=== PATIENT | male | born 1990 | race Caucasian/White ===

== ENCOUNTER 2021-01-14 17:40 | Emergency (ER) | payer MEDICAID, SELFPAY ==
--- NOTE | ~2021-01-14 | CT_ITS ---
EXAMINATION: CT HEAD WITHOUT CONTRAST CLINICAL INFORMATION: Status post fall. COMPARISON: None TECHNIQUE: Contiguous axial imaging was performed from the skull base to vertex without intravenous administration of contrast. This CT examination was performed using dose optimization techniques as appropriate, variously including the following: *Automated exposure control *Adjustment of mA and/or kV according to patient size (this includes techniques or standardized protocols for targeted exams where dose is matched to indication/reason for exam; i.e. extremities or head) *Use of iterative reconstruction technique DLP: 679 mGy-cm FINDINGS: There is no evidence of acute intracranial hemorrhage or territorial infarction. No abnormal mass effect or midline shift is seen. [place] to white matter differentiation is well preserved. No extra-axial fluid collections are identified. The ventricles are normal in size. There is no abnormal attenuation within the brain parenchyma. The osseous structures and soft tissues are normal. The mastoid air cells and visualized portions of the paranasal sinuses are well aerated. CT/CT head/brain wo con IMPRESSION: No CT evidence of acute intracranial pathology.
[2021-01-14 17:47] VITALS: BP 119/77; BP 132/73; PULSE 128; RESP 16; TEMP 36.8; O2SAT 93; BMI 24.2
--- NOTE | 2021-01-14 17:57 | PC.NURSE ---
Pt sweatpants placed in decon.
[2021-01-14 18:00] VITALS: BP 132/73; PULSE 120; RESP 16; TEMP 36.8; O2SAT 93
--- NOTE | 2021-01-14 18:00 | ED.OVERDOSE ---
HPI - Overdose General Chief Complaint: Overdose Stated Complaint: overdose Time Seen by Provider: 01/14/21 18:00 Source: patient and EMS Mode of arrival: EMS Limitations: no limitations History of Present Illness HPI Narrative: pt with History of substance abuse used 5 bags of heroin earlier today was in the bathroom hit his sink was on the floor not responding was given 4 mg of Narcan IN. Patient with history alcohol abuse chronic pancreatitis marijuana use recent marijuana vaping with E cigarettes Vaping acute lung injury (EVALI) and possible hepatopulmonary syndrome was in [facility] from 12/26 till 01/13, today patient used heroin and became unresponsive treated with Merissa HULL complaint: accidental overdose Related Data Previous Rx's Medication Instructions Recorded lactulose 20 g PO BID #1200 ml 01/14/21 Allergies Allergy/AdvReac Type Severity Reaction Status Date / Time No Known Allergies Allergy Verified 01/14/21 17:45 Review of Systems Review of Systems: Constitutional : No Weight loss, No Fever, No Chills ENT/Mouth : No sore throat, No Rhinorrhea Eyes: No Eye Pain, No Swelling Cardiovascular : No Chest Pain, no palpitations Respiratory : No Cough, No Sputum, no shortness of breath Gastrointestinal : no Nausea, No Vomiting, No Diarrhea, No abdominal Pain, no black stools Genitourinary : No Dysuria, No Urinary Frequency Musculoskeletal : No joint pain, No Myalgias, No Joint Swelling leg swelling++ Skin : No Skin Lesions, No rash, jaundice++ Neuro : No Weakness, No Numbness, No Dizziness, No Headache Psych : No Anxiety/Panic, No Depression Heme/Lymph: No Bruising, No Lymphadenopathy Endocrine : No Polyuria, No Polydipsia All other systems reviewed and are negative [facility] Past Medical History Medical History Alcohol abuse CHF (congestive heart failure) Chronic pancreatitis E-cigarette or vaping product use associated lung injury (EVALI) Hepatopulmonary syndrome Social History Social History Alcohol intake: never Smoking Status: Never smoker Use of substances other than those prescribed or required for medical reasons: Yes Substance Use Type: Heroin Advance Directives: No Advance Directives Information Provided: No Physical Exam Vital Signs: Vital Signs: Last Vital Signs Temp 98.3 F 01/14/21 19:00 Pulse 111 H 01/14/21 19:00 Resp 17 01/14/21 19:00 BP 132/73 01/14/21 18:00 Pulse Ox 93 01/14/21 19:00 Oxygen Flow Rate 3 01/14/21 17:47 Body Mass Index 24.2 Appearance: Alert. Oriented X3. No acute distress. Eyes: PERRLA, No Nystagmus HEENT: Pharynx normal. Oral Mucosa moist, small bruise above left eye, deeply icterus Neck: Normal inspection. Neck supple. CVS: Normal heart rate and rhythm. Pulses normal. Respiratory: No respiratory distress. Equal air entry bilateral, no wheezing/rales/rhonchi Abdomen: Soft and nontender. Bowel sounds are present, no mass palpable, no CVA tenderness Skin: Skin warm and dry. Normal skin color. Normal skin turgor. Yellow discoloration Extremities: No lower extremity edema. No calf tenderness Neuro: Oriented X 3. No motor deficit. No sensory deficit.No cerebellar signs , cranial nerves II-XII intact MDM - Overdose Medical Records Attestation: I reviewed the patient's medical records. Lab Data Attestation: I reviewed the patient's lab results. Result diagrams: 01/14/21 18:11 01/14/21 18:11 Labs: Lab Results 01/14/21 01/14/21 01/14/21 Range/Units 18:11 18:11 18:11 WBC 19.0 H (4.8-10.8) X10*3/uL RBC 2.26 L (4.60-5.80) X10*6/uL Hgb 7.7 L (14.0-18.0) g/dl Hct 23.4 L (42-52) % MCV 103.5 H (80-98) fL MCH 34.1 H (27.0-33.0) pg MCHC 32.9 (31.0-36.0) g/dl RDW 17.3 H (11.0-16.0) % Plt Count 190 (160-400) X10*3/uL MPV 10.2 (9.4-12.4) fL Immature Gran % (Auto) 1.6 H (0.0-0.4) % Neut % (Auto) 86.1 H (45-73) % Lymph % (Auto) 7.6 L (20-40) % [place] % (Auto) 3.7 (2-11) % Eos % (Auto) 0.9 (0-4) % Baso % (Auto) 0.1 (0-2) % Lymph # (Auto) 1.5 (1.2-4.9) X10*3/uL [place] # (Auto) 0.7 (0.1-1.2) X10*3/uL Eos # (Auto) 0.2 (0.0-0.4) X10*3/uL Baso # (Auto) 0.0 (0.0-0.2) X10*3/uL Abs Immat Gran (auto) 0.31 H (0.00-0.03) X10*3/uL Absolute Neuts (auto) 16.4 H (2.0-8.3) X10*3/uL Absolute Nucleated RBC 0.000 (0.0-0.012) X10*3/uL Nucleated RBC % (auto) 0.0 (0.0-0.2) /100WBC PT 20.7 H (10.8-13.0) SEC INR 1.7 H (0.9-1.1) APTT 32.6 (24.1-38.0) SEC Sodium 142 (135-145) mmol/L Potassium 3.8 (3.3-5.1) mmol/L Chloride 111 H (96-108) mmol/L Carbon Dioxide 16 L (22-29) mmol/L Anion Gap 19 (12-20) BUN 18 H (9-16) mg/dL Creatinine 0.77 (0.5-1.4) mg/dL Estim Creat Clear Calc 125.4 Estimated GFR > 60 Random Glucose 180 H (60-115) mg/dL Calcium 8.4 (8.4-10.2) mg/dL Total Bilirubin 10.4 H (0.0-1.0) mg/dL Direct Bilirubin 7.8 H (0.0-0.5) mg/dL AST 292 H (5-37) U/L ALT 319 H (0-40) U/L Alkaline Phosphatase 209 H (39-117) U/L Ammonia (13-55) umol/L Total Protein 4.9 L (6.5-8.0) g/dL Albumin 2.9 L (3.5-5.0) g/dL Lipase (8-78) U/L 01/14/21 01/14/21 Range/Units 18:11 18:11 WBC (4.8-10.8) X10*3/uL RBC (4.60-5.80) X10*6/uL Hgb (14.0-18.0) g/dl Hct (42-52) % MCV (80-98) fL MCH (27.0-33.0) pg MCHC (31.0-36.0) g/dl RDW (11.0-16.0) % Plt Count (160-400) X10*3/uL MPV (9.4-12.4) fL Immature Gran % (Auto) (0.0-0.4) % Neut % (Auto) (45-73) % Lymph % (Auto) (20-40) % [place] % (Auto) (2-11) % Eos % (Auto) (0-4) % Baso % (Auto) (0-2) % Lymph # (Auto) (1.2-4.9) X10*3/uL [place] # (Auto) (0.1-1.2) X10*3/uL Eos # (Auto) (0.0-0.4) X10*3/uL Baso # (Auto) (0.0-0.2) X10*3/uL Abs Immat Gran (auto) (0.00-0.03) X10*3/uL Absolute Neuts (auto) (2.0-8.3) X10*3/uL Absolute Nucleated RBC (0.0-0.012) X10*3/uL Nucleated RBC % (auto) (0.0-0.2) /100WBC PT (10.8-13.0) SEC INR (0.9-1.1) APTT (24.1-38.0) SEC Sodium (135-145) mmol/L Potassium (3.3-5.1) mmol/L Chloride (96-108) mmol/L Carbon Dioxide (22-29) mmol/L Anion Gap (12-20) BUN (9-16) mg/dL Creatinine (0.5-1.4) mg/dL Estim Creat Clear Calc Estimated GFR Random Glucose (60-115) mg/dL Calcium (8.4-10.2) mg/dL Total Bilirubin (0.0-1.0) mg/dL Direct Bilirubin (0.0-0.5) mg/dL AST (5-37) U/L ALT (0-40) U/L Alkaline Phosphatase (39-117) U/L Ammonia 101 H (13-55) umol/L Total Protein (6.5-8.0) g/dL Albumin (3.5-5.0) g/dL Lipase 12 (8-78) U/L Discharge Plan Discharge Clinical Impression: Drug overdose Qualifiers: Encounter type: initial encounter Injury intent: accidental or unintentional Qualified Code(s): T50.901A - Poisoning by unspecified drugs, medicaments and biological substances, accidental (unintentional), initial encounter Acute hepatic failure Qualifiers: Hepatic coma status: without hepatic coma Qualified Code(s): K72.00 - Acute and subacute hepatic failure without coma Patient Disposition: Home, Self-Care Instructions: Acute Liver Failure (DC), Opioid Use Disorder (ED) Additional Instructions: Do not use heroin. 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
[2021-01-14 18:15] LABS: MANUAL DIFF FLAG NO
[2021-01-14 18:21] LABS: Basophils Percent Auto 0.1 % (0-2); Eosinophils Absolute Auto 0.2 X10*3/uL (0.0-0.4); Eosinophils Percent Auto 0.9 % (0-4); Hematocrit 23.4 % (42-52); Hemoglobin 7.7 g/dl (14.0-18.0); Imm Gran Abs Auto 0.31 X10*3/uL (0.00-0.03); Imm Gran Pct Auto 1.6 % (0.0-0.4); Lymphocytes Absolute Auto 1.5 X10*3/uL (1.2-4.9); Lymphocytes Percent Auto 7.6 % (20-40); Mean Corpuscular HGB Conc 32.9 g/dl (31.0-36.0); Mean Corpuscular Hemoglobin 34.1 pg (27.0-33.0); Mean Corpuscular Volume 103.5 fL (80-98); Mean Platelet Volume 10.2 fL (9.4-12.4); Monocytes Absolute Auto 0.7 X10*3/uL (0.1-1.2); Monocytes Percent Auto 3.7 % (2-11); Neutrophils Absolute Auto 16.4 X10*3/uL (2.0-8.3); Neutrophils Percent Auto 86.1 % (45-73); Platelet Count 190 X10*3/uL (160-400); Red Blood Count 2.26 X10*6/uL (4.60-5.80); Red Cell Distribution Width 17.3 % (11.0-16.0)
[2021-01-14 18:22] LABS: INTERNATIONAL NORM RATIO 1.7 (0.9-1.1); Prothrombin Time 20.7 SEC (10.8-13.0)
[2021-01-14 18:24] LABS: Partial Thromboplastin Time 32.6 SEC (24.1-38.0)
[2021-01-14 18:32] LABS: Ammonia 101 umol/L (13-55)
[2021-01-14 18:51] LABS: Lipase 12 U/L (8-78)
[2021-01-14 18:56] LABS: Alanine Aminotransferase 319 U/L (0-40); Albumin Level 2.9 g/dL (3.5-5.0); Alkaline Phosphatase 209 U/L (39-117); Anion Gap 19 (12-20); Aspartate Amino Transferase 292 U/L (5-37); Bilirubin Direct 7.8 mg/dL (0.0-0.5); Bilirubin Total 10.4 mg/dL (0.0-1.0); Blood Urea Nitrogen 18 mg/dL (9-16); Calcium 8.4 mg/dL (8.4-10.2); Carbon Dioxide 16 mmol/L (22-29); Chloride 111 mmol/L (96-108); Creatinine Clr Calc Pharmacy 125.4; Estimated Glomerular Filt Rate > 60; Glucose Random 180 mg/dL (60-115); Potassium 3.8 mmol/L (3.3-5.1); Sodium 142 mmol/L (135-145); Total Protein 4.9 g/dL (6.5-8.0)
[2021-01-14 19:00] VITALS: PULSE 111; RESP 17; TEMP 36.8; O2SAT 93
[2021-01-14] MEDS: Lactulose 20 GM/30 ML SOLUTION 30 GM PO (19:13)
[2021-01-14] MEDS: predniSONE 20 MG TABLET 40 MG PO (19:15)
[2021-01-14] MEDS: Omeprazole 40 MG CAPSULE.DR PO (19:15)
== END 2021-01-14 20:29 | disposition home or self-care (01) ==
PROVIDERS: Emergency Provider Internal Medicine
DX: T40.1X1A Poisoning by heroin, accidental (unintentional), initial encounter (principal); K72.00 Acute and subacute hepatic failure without coma; Y92.89 Other specified places as the place of occurrence of the external cause; F11.13 Opioid abuse with withdrawal; Z71.51 Drug abuse counseling and surveillance of drug abuser; Z79.899 Other long term (current) drug therapy
CPT/HCPCS: 36415; 70450; 80048; 80076; 82140; 83690; 85025; 85610; 85730; 99285

== ENCOUNTER 2021-04-10 21:42 | Emergency (ER) | payer MEDICAID, SELFPAY ==
--- NOTE | ~2021-04-10 | CT_ITS ---
EXAMINATION: CT HEAD WITHOUT CONTRAST CLINICAL INFORMATION: Vomiting. Rule out intracranial hemorrhage. COMPARISON: 01/14/2021 TECHNIQUE: Contiguous axial imaging was performed from the skull base to vertex without intravenous contrast. This CT examination was performed using dose optimization techniques as appropriate, variously including the following: * Automated exposure control * Adjustment of mA and/or kV according to patient size (this includes techniques or standardized protocols for targeted exams where dose is matched to indication/reason for exam; i.e. extremities or head) Use of iterative reconstruction technique DLP: 733 mGy-cm. FINDINGS: There is no evidence of acute intracranial hemorrhage or territorial infarction. No abnormal mass effect or midline shift is seen. [place] to white matter differentiation is well preserved. No extra-axial fluid collections are identified. No hydrocephalus. No significant volume loss. There is no abnormal attenuation within the brain parenchyma. The osseous structures and soft tissues are normal. The mastoid air cells and visualized portions of the paranasal sinuses are well aerated. CT/CT head/brain wo con IMPRESSION: No acute intracranial pathology.
--- NOTE | ~2021-04-10 | CT_ITS ---
EXAMINATION: CT ABDOMEN AND PELVIS WITH CONTRAST CLINICAL INFORMATION: Diffuse abdominal pain with vomiting COMPARISON: None TECHNIQUE: Multidetector volumetric images were obtained from the superior aspect of the liver through the pubic symphysis following administration 85 mL of Omnipaque 350 intravenous contrast. Sagittal and coronal reformatted images were obtained on the technologist's workstation. Oral contrast: No This CT examination was performed using dose optimization techniques as appropriate, variously including the following: *Automated exposure control *Adjustment of mA and/or kV according to patient size (this includes techniques or standardized protocols for targeted exams where dose is matched to indication/reason for exam; i.e. extremities or head) *Use of iterative reconstruction technique DLP: 842 mGy-cm FINDINGS: LUNG BASES: The visualized lung bases are unremarkable. Cc report from chest CT same day LIVER, GALLBLADDER, AND BILIARY TREE: The liver is markedly enlarged measuring 23.5 cm in greatest length with decreased attenuation probably representing hepatic steatosis. No focal liver mass or bile duct dilatation is seen. The gallbladder is unremarkable with no evidence of radiopaque gallstones, gallbladder wall thickening, or obvious pericholecystic inflammatory changes. PANCREAS: Diffuse coarse calcifications present throughout the entire pancreas consistent with chronic pancreatitis. SPLEEN: Borderline splenomegaly present at 12.6 cm ADRENAL GLANDS: Unremarkable. KIDNEYS AND URETERS: The kidneys are normal in size, shape, and attenuation there are probable bilateral punctate renal calcifications present diagnosis of renal calculi can be difficult after administration of contrast.. No hydronephrosis, hydroureter, or ureteral calculi seen. No perinephric stranding. Right upper pole renal cysts present, the largest 3 cm. No solid masses are seen BLADDER: Unremarkable. GASTROINTESTINAL TRACT: The small and large bowel are unremarkable. The appendix is unremarkable. ABDOMINAL WALL: No significant hernia is appreciated. LYMPH NODES: Normal. VASCULAR: Unremarkable. PELVIC VISCERA: Prostate and seminal vesicles appear normal. OSSEOUS STRUCTURES: Unremarkable. CT/CT abdomen pelvis w con IMPRESSION: A etiology for the patient's diffuse abdominal pain and vomiting has not been found. Incidental note made of: 1. Enlarged probable fatty liver 2. Changes of chronic pancreatitis with calcifications throughout. 3. Possible punctate nonobstructing renal calculi with limitations in diagnosis as described above. 4. Right renal cysts
--- NOTE | ~2021-04-10 | CT_ITS ---
EXAMINATION: CT ANGIOGRAM OF THE CHEST WITH AND WITHOUT CONTRAST (CT PULMONARY ANGIOGRAM FOR PE) CLINICAL INFORMATION: Reason for Exam hypoxia, sob, r/o pe COMPARISON: None TECHNIQUE: Prior to contrast administration, noncontrast localization images were obtained. Subsequently, multidetector volumetric imaging was performed from the thoracic inlet to below the diaphragms following the administration of 80 mL Omnipaque 350 intravenous contrast. No contrast reaction reported Sagittal, coronal, and MIP oblique sagittal reformatted images were obtained on the CT workstation, uploaded to PACS, and reviewed. This CT examination was performed using dose optimization techniques as appropriate, variously including the following: *Automated exposure control *Adjustment of mA and/or kV according to patient size (this includes techniques or standardized protocols for targeted exams where dose is matched to indication/reason for exam; i.e. extremities or head) *Use of iterative reconstruction technique Total exam dose-length product 842 mGy-cm FINDINGS: QUALITY OF STUDY/CONTRAST BOLUS: Poor bolus as well as marked motion artifact. PULMONARY ARTERIES: No central or large segmental pulmonary emboli. THORACIC AORTA: No aneurysm or dissection. LUNG: No focal consolidation, nodules or masses. PLEURA: No pleural effusion or pneumothorax. MEDIASTINUM: Normal heart size. No pericardial effusion. No hilar or mediastinal lymphadenopathy. No evidence of septal bowing or right heart strain. CHEST WALL/AXILLA: No axillary or internal mammary lymphadenopathy. OSSEOUS STRUCTURES: No acute or suspicious osseous abnormality. UPPER ABDOMEN: See report of CT abdomen pelvis contemporaneously. No reflux of contrast into the hepatic veins to suggest elevated right heart pressures. CT/CT angio chest PE protocol IMPRESSION: Limited exam but no evidence of large pulmonary emboli. VTE: Negative
[2021-04-10 21:45] VITALS: BP 168/100; PULSE 128; RESP 16; TEMP 36.1; O2SAT 92; BMI 26.6
--- NOTE | 2021-04-10 22:13 | ECG_ITS ---
Test Reason : ETOH Blood Pressure : / mmHG Vent. Rate : 105 BPM Atrial Rate : 105 BPM P-R Int : 154 ms QRS Dur : 088 ms QT Int : 330 ms P-R-T Axes : 053 012 025 degrees QTc Int : 436 ms Sinus tachycardia Otherwise normal ECG No previous ECGs available Referred By: Roxanne Carroll Electronically Signed By:ANGY MADRIGAL MD
[2021-04-10 22:38] LABS: MANUAL DIFF FLAG NO
[2021-04-10 22:40] LABS: Basophils Percent Auto 0.3 % (0-2); Eosinophils Absolute Auto 0.2 X10*3/uL (0.0-0.4); Eosinophils Percent Auto 1.2 % (0-4); Hematocrit 39.8 % (42-52); Hemoglobin 13.5 g/dl (14.0-18.0); Imm Gran Abs Auto 0.06 X10*3/uL (0.00-0.03); Imm Gran Pct Auto 0.5 % (0.0-0.4); Lymphocytes Absolute Auto 2.5 X10*3/uL (1.2-4.9); Lymphocytes Percent Auto 20.3 % (20-40); Mean Corpuscular HGB Conc 33.9 g/dl (31.0-36.0); Mean Corpuscular Volume 94.3 fL (80-98); Mean Platelet Volume 10.2 fL (9.4-12.4); Monocytes Absolute Auto 0.8 X10*3/uL (0.1-1.2); Monocytes Percent Auto 6.8 % (2-11); Neutrophils Absolute Auto 8.6 X10*3/uL (2.0-8.3); Neutrophils Percent Auto 70.9 % (45-73); Platelet Count 178 X10*3/uL (160-400); Red Blood Count 4.22 X10*6/uL (4.60-5.80); Red Cell Distribution Width 12.8 % (11.0-16.0); White Blood Count 12.1 X10*3/uL (4.8-10.8)
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
[2021-04-10 22:49] LABS: INTERNATIONAL NORM RATIO 1.3 (0.9-1.1); Prothrombin Time 14.8 SEC (9.9-13.0)
[2021-04-10 22:52] LABS: D Dimer 210 NG/ML
[2021-04-10 22:54] VITALS: BP 150/98; PULSE 103; RESP 14; TEMP 36.9; O2SAT 95
[2021-04-10 22:58] LABS: Lactic Acid 1.6 mmol/L (0.5-2.0)
[2021-04-10] MEDS: cefTRIAXone sodium 1 GM in 0.9 % Sodium Chloride 50 ML IV (23:03)
[2021-04-10 23:10] LABS: Ethanol 70 mg/dL
[2021-04-10 23:17] LABS: Troponin-I High Sensitivity < 3.5 ng/L (<3.5-35.0)
[2021-04-10 23:25] LABS: Alanine Aminotransferase 134 U/L (0-40); Albumin Level 4.5 g/dL (3.5-5.0); Alkaline Phosphatase 184 U/L (39-117); Anion Gap 16 (12-20); Aspartate Amino Transferase 259 U/L (5-37); Bilirubin Direct 0.8 mg/dL (0.0-0.5); Bilirubin Total 1.2 mg/dL (0.0-1.0); Blood Urea Nitrogen 9 mg/dL (9-16); Calcium 9.4 mg/dL (8.4-10.2); Carbon Dioxide 25 mmol/L (22-29); Chloride 109 mmol/L (96-108); Estimated Glomerular Filt Rate > 60; Glucose Random 239 mg/dL (60-115); Lipase 24 U/L (8-78); Magnesium 1.7 mg/dL (1.6-2.6); Potassium 2.9 mmol/L (3.3-5.1); Sodium 147 mmol/L (135-145)
[2021-04-10 23:31] LABS: Influenza A PCR NEGATIVE (Negative); Influenza B PCR NEGATIVE (Negative); Resp Syncy Virus RNA Qual PCR NEGATIVE (Negative); SARS COV2 PCR INHOUSE NEGATIVE (Negative)
[2021-04-11] VITALS: BP 138/101; PULSE 92; RESP 20; O2SAT 95
[2021-04-11] MEDS: Potassium Chloride/H20 10 MEQ/100 ML PIGGYBACK 100 MEQ IV ×2 (00:06→01:43)
[2021-04-11] MEDS: Potassium Chloride ER 20 MEQ TAB.ER.PRT 40 MEQ PO (00:06)
[2021-04-11 00:08] LABS: Glucose Urine UA NEG (NEG); Leukocyte Esterase Urine NEG (NEG); Nitrite Urine NEG (NEG); PH 6.5 (5.0-8.0); UACC Culture Trigger NO; Urine Blood 3+ (NEG); Urine Ketones NEG (NEG); Urine Protein 1+ MG/DL (NEG-TRACE)
[2021-04-11] MEDS: iohexoL 350 MG/ML 100 ML INFUS..BTL 85 ML IV (00:08)
[2021-04-11 00:13] LABS: Appearance Urine CLOUDY; Color Urine YELLOW
[2021-04-11 00:16] LABS: Bacteria Urine TRACE /LPF; WBC Urine 0 /HPF (0-4)
[2021-04-11 00:29] LABS: Amphetamine Screen Urine Not Detected (Not Detect); Barbiturates, Urine POSITIVE (Not Detect); Benzodiazepines Screen Urine Not Detected (Not Detect); Cannabinoid Screen Urine POSITIVE (Not Detect); Cocaine Screen Urine Not Detected (Not Detect); Opiate Screen Urine POSITIVE (Not Detect); Phencyclidine Screen Urine Not Detected (Not Detect)
[2021-04-11 02:00] VITALS: BP 142/97; PULSE 91; RESP 18; O2SAT 96
[2021-04-11 03:30] LABS: Anion Gap 14 (12-20); Blood Urea Nitrogen 8 mg/dL (9-16); Calcium 8.6 mg/dL (8.4-10.2); Carbon Dioxide 23 mmol/L (22-29); Chloride 109 mmol/L (96-108); Creatinine Clr Calc Pharmacy 119.3; Estimated Glomerular Filt Rate > 60; Glucose Random 135 mg/dL (60-115); Sodium 142 mmol/L (135-145)
[2021-04-11 04:00] VITALS: BP 137/98; PULSE 93; RESP 18; O2SAT 96
== END 2021-04-11 05:11 | disposition home or self-care (01) ==
PROVIDERS: Nurse Practitioner Family; Emergency Provider Internal Medicine
DX: F10.129 Alcohol abuse with intoxication, unspecified (principal); Y90.3 Blood alcohol level of 60-79 mg/100 ml; E87.6 Hypokalemia; Z20.822 Contact with and (suspected) exposure to COVID-19
CPT/HCPCS: 0241U; 36415; 70450; 71275; 74177; 80048; 80076; 80307; 81001; 82077; 82550; 83605; 83690; 83735; 84484; 85025; 85379; 85610; 87040; 93005; 96361; 96365; 96367; 99285; J0696; Q9967

== ENCOUNTER 2022-06-08 16:08 | Emergency (ER) | payer MEDICAID, SELFPAY ==
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
[2022-06-08 16:53] VITALS: BP 126/84; PULSE 88; RESP 18; TEMP 37.1; O2SAT 99; BMI 24.2
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
[2022-06-08] MEDS: Cyclobenzaprine HCl 10 MG TABLET PO (20:10)
== END 2022-06-08 20:30 | disposition home or self-care (01) ==
PROVIDERS: Emergency Provider Emergency Medicine Emergency Medical Services
DX: S70.11XA Contusion of right thigh, initial encounter (principal); V13.4XXA Pedal cycle driver injured in collision with car, pick-up truck or van in traffic accident, initial encounter; Y93.55 Activity, bike riding; Y92.414 Local residential or business street as the place of occurrence of the external cause; Y99.9 Unspecified external cause status
CPT/HCPCS: 73502; 99283

== ENCOUNTER → 2024-06-25 12:15 | Outpatient (BNV) | payer OTHER, SELFPAY | PROVIDERS: Visit Provider Psychiatry & Neurology Psychiatry | DX: F14.10 Cocaine abuse, uncomplicated (principal); F11.20 Opioid dependence, uncomplicated; F32.89 Other specified depressive episodes; F43.11 Post-traumatic stress disorder, acute | CPT/HCPCS: 90837; 99499 ==

== ENCOUNTER 2024-06-30 15:19 | Outpatient (AMB) | payer OTHER, SELFPAY ==
[2024-06-30 15:00] VITALS: BP 130/70; PULSE 115; RESP 19; O2SAT 98
--- NOTE | 2024-06-30 15:47 | A.OFFVISCC_ITS ---
Vital Signs 06/30/24 15:00 BP 130/70 Blood Pressure Location Lt brachial Position Sitting Respiration 19 Pulse 115 H Pulse Oximetry (%) 98 Intake Visit Reasons: Intake Allergies No Known Allergies Allergy (Verified 06/08/22 16:53) HPI HPI Intake: Details: Patient presents for evlauation and treatment of ongoing substance use referrred by PHP Reports history of Suboxone treatment 2018 suboxone for 1.5 years Currently using approx a bundle of fentanyl daily IN Denies any history of overdose Last use Friday morning not sleeping History of alcohol use history of pancreatitis in 2019 denies any alcohol use now Somewhat challenging to obtain history from patient as he was very tangential and required frequent redirection to answer original question. Mixed motivation for treatment at this time-substance use likely addressing underlying BH sx including trauma and grief (mother recently passed) Patient aware of risk related to ongoing use in terms of overall health, overdose, and quality of life REPLACED BY [facility] Medical History (Updated 06/30/24 @ 00:15 by Yesy De La Rosa MD) History of kidney stones Contusion of testicle History of pancreatitis Pneumonia Chronic pancreatitis Alcohol abuse Hepatopulmonary syndrome E-cigarette or vaping product use associated lung injury (EVALI) CHF (congestive heart failure) Social History Household Members: Friend(s) Alcohol intake: never Patient Tobacco Use Status: Current everyday Tobacco user Tobacco use type: Cigarette Substance Use Type: Heroin Review of Systems Const Unobtainable due to mental status (challenging to obtain but overall reporting anxiety and poor sleep) Physical Exam Vital Signs: Last Vital Signs Pulse 115 H 06/30/24 15:00 Resp 19 06/30/24 15:00 BP 130/70 06/30/24 15:00 Pulse Ox 98 06/30/24 15:00 Const General: cooperative and anxious Nutritional Appearance: average body habitus Orientation/consciousness: patient oriented x3 Limitations: no limitations Neuro General: patient oriented x3 Psych Affect: Animated affect present and Anxious affect present Attitude: cooperative Thought process: Circumstantial thought process present and Tangential thought process present Assessment & Plan Assessment & Plan (1) Opioid use disorder, severe, dependence: Code(s): F11.20 - Opioid dependence, uncomplicated Category: Medical Plan: * suboxone rx and instructions for starting treatment at home home provided to patient. He is familiar with this medication and risk associated with starting too soon * no timeframe for starting medication, allowing patient to determine this based on readiness * overdose prevention discussion--patient has narcan at home * follow up 10 days Medications: New buprenorphine-naloxone 8-2 mg (Suboxone) 1 film buccal TID 10 ea 0RF MAT Intake Nursing Intake Reason for visit: establish care Are you currently using?: Yes What are you taking?: heroine When was your last use?: yesterday 06/29 How much?: 3 bags What is your source of income?: unemployed What is your current relationship status?: single Current PCP: states he has one in [place] but unsure name of provider and or where in [place] Date of last visit: <1 year Referral Source: [facility] Substance Abuse History Substance Abuse History (includes route, frequency and quantity): Heroin, Fentanyl, Buprenorphine/naloxone, Cocaine, Marijuana and Tobacco Age of first use: 23 Social History Domestic Violence concerns: NA Children: No Do you have a support system?: Roomate and her familt Where are you currently residing?: In [place] Details: IV Drug Use Have you ever shared needles?: No Have you ever belonged to a needle exchange program?: No Do you buy needles at a pharmacy?: No Have you ever overdosed?: No Number of lifetime overdoses: 0 (patients denies but chart has one documented) Have you ever been hospitalized for an overdose?: No (patient denies) Was Naloxone administered?: No Details: patient denies Recovery History Have you had any periods of recovery?: Yes What is your longest time in recovery?: 1 year When was the last time you were in recovery?: 2019 Have you ever had inpatient treatment for your substance abuse disorder?: No Have you been in an inpatient detoxification program?: Yes Have you been in an inpatient Rehab/[place] house?: No Have you been in an outpatient Methadone Maintenance program?: No Have you been in an outpatient Suboxone Maintenance program?: Yes Have you been in an AA/NA support program?: No Have you had a Recovery Support Shotgun Shell Reprinting Unit Operator?: No Have you had Peer Support?: No Behavioral Health History BH diagnosis: Anxiety and Depression History of self harming thoughts?: No History of homicidal or suicidal intentions?: No Medical Conditions Endocarditis?: No Skin Infection: No Seizure related to withdrawal or overdose: No Head or brain injury: No Hepatitis A (if yes, have you been treated?): No Hepatitis B (if yes, have you been treated?): No Hepatitis C (if yes, have you been treated?): No HIV (if yes, have you been treated?): No TB (if yes, have you been treated?): No Legal History History of incarceration: No Currently on parole or probation: No Court mandated programs: No Pending court cases: No DCF involvement: No
== END 2024-06-30 16:15 | disposition home or self-care (01) ==
LOC: HO.HCC 15:20
PROVIDERS: Visit Provider Nurse Practitioner Psychiatric/Mental Health
DX: F11.20 Opioid dependence, uncomplicated (principal)
CPT/HCPCS: 99204

== ENCOUNTER → 2024-06-30 15:19 | Outpatient (BNVA) | payer OTHER, SELFPAY | PROVIDERS: Visit Provider Nurse Practitioner Psychiatric/Mental Health | DX: F11.20 Opioid dependence, uncomplicated (principal) | CPT/HCPCS: 99202 ==

== ENCOUNTER 2024-07-02 12:15 | Outpatient (RCR) | payer OTHER, SELFPAY ==
[2024-06-24 09:45] VITALS: BMI 26.1
--- NOTE | 2024-06-24 11:11 | PC.ADMIT ---
Patient is a 33 year old single male who self referred to [facility] on advice of his roommate Charleen. Patient reports he struggles with anxiety and thinks he has ADHD. Patient has a history of substance use snorting heroin and vaping marijuana. He reports he binge uses Heroin and will use it every few months for a few days. He reports last use was on 06/15/24 around the time his mother passed a few years ago. Patient has a history of overdosing on heroin and subsequently narcaned, last time was 04/10/21. Patients toxicology screen at that time was positive for opiates, barbiturates, and marijuana. Patient denied any current withdrawal symptoms from heroin. Patient reports no diarrhea, no vomiting, no body aches. Patient appears with mild diaphoresis and rhinitis. Reports feeling anxious. Pupil size appears normal. He is restless. Reports consuming high amounts of caffeine drinking two, 2 liter bottles, of soda a day. Attends NA zoom meetings at least once a week. He is interested in MAT as he has been on Suboxone in the past. I made Viral an appointment for MAT with the [facility] on 06/30/24 at 3:00pm. VS 110/64 P 88. Patient lives with Charleen his roommate. Patient reports Charleen and her mother are supportive. Patient presents with nasal congestion. He reports a dog bit his nose in 2011 and received 6 sutures in the ER. He thinks he may have a deviated septum although has not been dx with this. Stated he has been dealing with nasal congestion for at least 6 years or more. No history of fx nose. Patient stated he gets sinus infections and headaches. Patient reports he has been resistant to going to the doctor as his mother and grandfather and the hospital was not able to help them. Recommended he go to urgent care to f/u. He does have a new PCP appointment on July 14, 2024 at 1:40 PM at [facility] in [place]. He stated Charleen's mother made him the appointment. Patient is alert and oriented x4. He is cooperative, help seeking. He presented with anxious mood, some restlessness, and is talkative at times. His hygiene is poor and appearance is unkempt. He denied depression. Denied SI. He was given a copy of his safety plan if needed. He is not prescribed any medications at this time confirmed with patient and patient's pharmacy.
[2024-06-24 13:13] VITALS: BP 110/64; PULSE 88; TEMP 36.7
--- NOTE | 2024-06-24 15:36 | HO.PHP ---
Pt's case was opened and reviewed in treatment team.
[2024-06-25 07:02] LABS: Amphetamine Screen Urine Not Detected (Not Detect); Barbiturates, Urine Not Detected (Not Detect); Benzodiazepines Screen Urine Not Detected (Not Detect); Buprenorphine Scr Not Detected (Not Detect); Cannabinoid Screen Urine POSITIVE (Not Detect); Cocaine Screen Urine POSITIVE (Not Detect); Fentanyl, urine POSITIVE (Not Detect); Methadone Screen, Urine Not Detected (Not Detect); Opiate Screen Urine POSITIVE (Not Detect); Oxycodone Screen Urine Not Detected (Not Detect); Phencyclidine Screen Urine Not Detected (Not Detect)
--- NOTE | 2024-06-25 11:05 | PC.NURSE ---
Dr. Atkinson is aware of Viral positive RAMOS screen for Opiates, Cocaine, Cannabis, and Fentanyl. [facility] staff is also aware. Repeat RAMOS on Friday. Dr. De La Rosa scheduled to meet with patient on Friday. Patient does have Narcan if needed.
--- NOTE | 2024-06-25 11:58 | PC.NURSE ---
Addendum entered by Lakeisha Monet RN 06/25/24 12:08: BP 130/70 P 88. Original Note: Patient presents as somewhat restless. He is mildly diaphoretic. He stated it was hot in the group room he was in. He has a shirt and a flannel shirt on. He took off the flannel shirt. I asked him if he was struggling with using substances and how could we help him. He denied using. I asked him if he every been to withdrawal management/detox, he stated he has a history of going to [facility]. I let him know we would be happy to help him get into a withdrawal management program if he wanted. He stated last time he used opiates/heroin was 06/15/24 and last use of cocaine was 06/15/24. Patient reports he has Narcan. Educated patient about the dangers of using heroin and cocaine. Patient stated he is aware.
[2024-06-25 12:09] VITALS: BP 130/70; PULSE 88
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
--- NOTE | 2024-06-28 09:42 | HO.PHP ---
PHP staff member reached out to Viarl due to him not showing up to program. Viral did not answer his phone so a voicemail was left asking him to contact the program back. PHP staff member noted if she does not hear back from him, she will have to reach out to his emergency contact and then the local police if the emergency contact is unable to get a hold of him. PHP staff member is awaiting on a phone call back.
--- NOTE | 2024-06-28 09:43 | HO.PHP ---
PHP staff member reached out to Viral's emergency contact Heron, in which she voiced that she is going to contact him and then call the program back. PHP staff member is awaiting on a return call to make sure he is safe.
--- NOTE | 2024-06-28 10:00 | HO.PHP ---
PHP staff contacted Viral's emergency contact back to see if she was able to get a hold of Viral. Unfortunately she was unable to and said she also reached out to his roommate, who is also not responding. PHP staff member explored when the last time she had contact with Viral was. Heron mentioned she had a missed call from him and hasn't heard from him since. PHP staff member Heron that we will be moving forward with completing a wellness check. The sister was receptive and asked if we can call back to let her know as well that he is safe. PHP staff member was receptive.
--- NOTE | 2024-06-28 10:02 | HO.PHP ---
PHP staff member reached out to the [facility] department and spoke to Chi, informing him that she would like to complete a wellness check on Viral due to him not showing up to program and not responding to any out reach attempts made by the program or his sister. Chi stated that they are sending a team out now to complete the wellness check. PHP staff member asked if they can contact her back once they have had contact with him. Chi was in agreement.
--- NOTE | 2024-06-28 15:35 | HO.PHP ---
[facility] staff member followed up with [place] [employer] to see if they were able to complete the wellness check on Viral. The police disclosed that they came into contact with Viral and he was fine. [facility] staff member was receptive. [facility] staff member reached out to Viral's sister, Heron, to inform her that the police made contact and he was well. Heron was relieved.
--- NOTE | 2024-06-29 00:04 | HO.PHPPROGNO ---
Subjective Subjective Date of Service: 06/29/24 Reason For Visit: trauma,RAMSES Medication Compliance: Yes Side effects from medications: No Attending Groups: No Review of Systems Acute medical concerns: Yes Medical Review of Systems: unchanged Review of Systems: ongoing nasal congestion, concerning for sinus infection - wants to be seen in ED after leaving [facility] today Mental Status Exam Mental Status Exam Narrative: Alert, oriented, in no acute distress. Psychomotor agitation, restless, pacing at times when talking, but agreeable friendly and pleasant. Seems forthcoming about use, although perhaps minmizing withdrawal symptoms currently. Eye contact maintained. Mood depressed, affect variable, bright without irritability or lability.. Speech talkative without pressured speech. Thought process linear, coherent, scattered. Thought content related to stressors, executive dysfunciton and attentional issues, generalized anxiety, still processing gried of his mother's , endorses transient hopelessness, denies SI, intention, urge or plan or HI. Denies thoughts of harming himself or others. No paranoia or delusional content elicited. No evidence of psychosis. Insight and judgment - fair but adequate. Diagnostics Vital Signs (24Hr): BMI result Body Mass Index 26.1 Assessment & Plan Assessment & Plan (1) Heroin use disorder, severe: Status: Acute Code(s): F11.20 - Opioid dependence, uncomplicated Assessment and Plan: active use, intranasally per patient (2) Depressive disorder, not elsewhere classified: Status: Acute Code(s): F32.89 - Other specified depressive episodes Assessment and Plan: Bereavement r/o MDD r/o substance-induced depressive disorder (3) PTSD (post-traumatic stress disorder): Status: Acute Code(s): F43.10 - Post-traumatic stress disorder, unspecified (4) Other psychoactive substance abuse with intoxication, uncomplicated: Status: Acute Code(s): F19.120 - Other psychoactive substance abuse with intoxication, uncomplicated Assessment and Plan: h/o cocaine/crack abuse, +cocaine, +fentanyl, +opioids Plan patient relapsed yesterday strongly encouraged to consider entering rehab for OUD trtmt start loratidine 10 mg qd ordered a new albuterol (since patient's is using his grandmother's inhaler start quetiapine 25-50 mg qhs prn sleep, agitation start guanfacine ER 1 mg qam for anxiety start amantadine 100 mg qhs (start 1/2 tablet for now, and will increase as tolerated) to target opioid withdrawal, ADHD symptoms, RLS/restlessness which interfere with sleep consider addition of bupropion vs atemoxetine patient declined starting naltrexone/Vivitrol/buprenorphine, however since relapse will defer to [facility] 3[facility], will discuss treatment options He was given an appointment to meet with [facility] next week as well. Routine lab work ordered UDS, EKG as indicated MassPat reviewed Continue to monitor as per protocol Patient educated on: diagnosis, medication risk/benefits and substance abuse Informed Consent: understands Reason for contiued partial hosp. stay Substantial Risk for: rapid decompensation and med/psych decompensation Certification I certify that partial hospital treatment is medically necessary due to the symptoms and problems resulting from the patient's mental illness and the failure to treat the patient at the partial hospital level of care would likely result in the patient requiring inpatient psychiatric care which could not be prevented at a less intensive level of care. Total time managing care of this patient today __45__ minutes. Discharge Plan Discharge Attending provider: Yesy De La Rosa Additional Instructions: New PCP appointment with [facility], [address] [place] [address]. Office Number: [phone] Medications: New guanfacine 1 mg tablet extended release 24 hr 1 mg PO DAILY Qty: 14 0RF amantadine HCl 100 mg tablet 100 mg PO DAILY Qty: 14 0RF quetiapine 25 mg tablet 25 - 50 mg PO BEDTIME PRN (Reason: sleep) Qty: 30 0RF loratadine 10 mg capsule 10 mg PO DAILY Qty: 30 0RF albuterol sulfate 90 mcg/actuation HFA aerosol inhaler 1 inh inhalation QID PRN (Reason: shortness of breath or wheezing) Qty: 6.7 0RF Stand Alone Forms: Patient Portal Discharge page Print Language: Stateless
--- NOTE | 2024-06-30 00:17 | P.PNPSP_ITS ---
Subjective Subjective Date of Service: 06/29/24 Reason For Visit: trauma,RAMSES Diagnostics Vital Signs (24Hr): BMI result Body Mass Index 26.1 Assessment & Plan Certification I certify that partial hospital treatment is medically necessary due to the symptoms and problems resulting from the patient's mental illness and the failure to treat the patient at the partial hospital level of care would likely result in the patient requiring inpatient psychiatric care which could not be prevented at a less intensive level of care. Total time managing care of this patient today ____ minutes. Discharge Plan Discharge Attending provider: Yesy De La Rosa Additional Instructions: New PCP appointment with [facility], [address] [place] [address]. Office Number: [phone] Medications: New guanfacine 1 mg tablet extended release 24 hr 1 mg PO DAILY Qty: 14 0RF amantadine HCl 100 mg tablet 100 mg PO DAILY Qty: 14 0RF quetiapine 25 mg tablet 25 - 50 mg PO BEDTIME PRN (Reason: sleep) Qty: 30 0RF loratadine 10 mg capsule 10 mg PO DAILY Qty: 30 0RF Stand Alone Forms: Patient Portal Discharge page Print Language: Setswana
--- NOTE | 2024-06-30 01:09 | PM.EVENT ---
Event Note Date of Service: 06/30/24 Event Note: Following up with patient to see how ED visit went for nasal congestion ?sinus infx. Patient wound up not being seen in ED, but instead visited with his roommate's grandmother who is presently there in the hospital. He is home now and can be heard with company present - roommate and friends over. Continues with sinus congestion but is in good spirits. 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 Time Spent With Patient Time: Total time managing care of this patient today __10__ minutes.
--- NOTE | 2024-06-30 15:03 | HO.PHP ---
PHP staff member faxed over a referral for OP therapy, med management, and a control and recovery combat rescue, through [facility]. PHP staff member is awaiting on the appointment dates and times.
--- NOTE | 2024-07-01 16:24 | HO.PHP ---
Viral was called at roughly 9:25 am when he did not show up for Programming as scheduled. Pt called back quickly, stated he had just woken up. Pt stated he couldn't talk, he had to make a phone call, but stated he was safe and asked if staff can please call him back later. Pt sounded anxious, hyperverbal, in a tavares but clear. Clerk Of Court called Viral back at roughly 3:30pm to check in regarding attendance for tomorrow and provide support to not miss anymore scheduled days. Viral was calmer, appreciative of staff support. Apologized repeatedly, stated he really wants to continue at [facility], struggles to wake up and struggles with anxiety when he wakes up. Pt stated he felt hopeful after attending [facility] yesterday and after speaking with the provider there about substance support, reports he will be beginning MAT next week. Viral states he will set several alarms for tomorrow morning and will ask his roommate to wake him up as well so he will be here on time. Viral is aware he can not miss anymore days. Viral reports he is safe, no SI.
--- NOTE | 2024-07-06 10:00 | PC.NURSE ---
New PCP appointment on Sunday July 14, 2024 at 1:40 pm with [facility], [address] [place] [address]. Office Number: [phone]
--- NOTE | 2024-07-06 14:04 | HO.PHP ---
PHP staff member received a voicemail from [facility] through [facility] with Viral's aftercare appointments. Viral's OP therapy intake appointment is scheduled for July 12, 2024 at 10 AM with Sherlyn Dunn at [address] [place] [address]. Viral's med provider appointment is scheduled for August 06, 2024 at 11 AM via telehealth with Miguel Willis.
--- NOTE | 2024-07-06 23:42 | P.PNPSP_ITS ---
Subjective Subjective Date of Service: 07/06/24 Reason For Visit: trauma,RAMSES Interim History: Patient seen for follow-up, anticipating discharge at the end of program today.? Reports no acute issues or concerns. Medication compliant, medications well- tolerated. Denies any adverse effects.? Mood is stable.? Denies any hopelessness or SI. Denies thoughts of harming self or others at this time. Denies any aggressive ideation or HI. Denies any paranoia or AH or VH. Sleep, appetite, energy stable. Alert, oriented, in no acute distress. Calm, cooperative. Mood stable, affect appropriate. Speech normal. Thought process linear, coherent, more goal- directed. Thought content related to stressors, future-oriented, denies any helplessness, hopelessness or SI.? No aggressive ideation or HI. No paranoia or delusional content elicited. No evidence of psychosis. Insight and judgment fair-good. Discharge from [facility] Continue regular medications Refills sent to pharmacy Will defer further medication management to outpatient provider *Safety plan reviewed *Discharge diagnoses, treatment course, discharge plan have been reviewed with patient (including medication regime, medication management, potential side effects) as well as treatment rationale were also revisited *Discharge paperwork signed and given to patient, copy sent for scanning to chart Diagnostics Vital Signs (24Hr): BMI result Body Mass Index 26.1 Assessment & Plan Certification I certify that partial hospital treatment is medically necessary due to the symptoms and problems resulting from the patient's mental illness and the failure to treat the patient at the partial hospital level of care would likely result in the patient requiring inpatient psychiatric care which could not be prevented at a less intensive level of care. Total time managing care of this patient today ____ minutes. Discharge Plan Discharge Attending provider: Yesy De La Rosa Additional Instructions: New PCP appointment on Sunday July 14, 2024 at 1:40 pm with [facility], [address] [place] [address]. Office Number: [phone] Viral's OP therapy intake appointment is scheduled for July 12, 2024 at 10 AM with Sherlyn Dunn at [address] [place] [address]. Viral's med provider appointment is scheduled for August 06, 2024 at 11 AM via telehealth with Miguel Willis. Medications: New guanfacine 1 mg tablet extended release 24 hr 1 mg PO DAILY Qty: 14 0RF amantadine HCl 100 mg tablet 100 mg PO DAILY Qty: 14 0RF loratadine 10 mg capsule 10 mg PO DAILY Qty: 30 0RF albuterol sulfate 90 mcg/actuation HFA aerosol inhaler 1 inh inhalation QID PRN (Reason: shortness of breath or wheezing) Qty: 6.7 0RF quetiapine 50 mg tablet 50 mg PO BEDTIME Qty: 14 0RF clonidine HCl 0.1 mg tablet 0.1 mg PO TID PRN (Reason: anxiety, increased heart rate) Qty: 30 0RF Continued buprenorphine-naloxone [Suboxone] 8-2 mg film 1 film buccal TID Qty: 10 0RF Changed quetiapine 25 mg tablet 25 mg PO BID PRN (Reason: sleep, agitation) Qty: 15 0RF Stand Alone Forms: Patient Portal Discharge page Patient Education: Post Traumatic Stress Disorder (DC) Print Language: Finnish
== END 2024-07-02 23:59 | disposition home or self-care (01) ==
LOC: HO.PHPA 12:15
PROVIDERS: Visit Provider Psychiatry & Neurology Psychiatry
DX: F11.20 Opioid dependence, uncomplicated (principal); F32.89 Other specified depressive episodes; F43.10 Post-traumatic stress disorder, unspecified; F14.10 Cocaine abuse, uncomplicated
CPT/HCPCS: 80307; 90791; 90853

== ENCOUNTER 2025-06-27 13:18 | Outpatient (AMB) | payer OTHER, SELFPAY ==
[2025-06-27 13:28] VITALS: BP 116/70; PULSE 74; O2SAT 97; BMI 29.0
--- NOTE | 2025-06-27 13:28 | A.OFFVIS_ITS ---
Vital Signs 06/27/25 13:28 Height 5 ft 5 in Weight 174 lb BMI 29.0 BP 116/70 Pulse 74 Pulse Oximetry (%) 97 Intake Visit Reasons: Mat Intake Allergies No Known Allergies Allergy (Verified 06/27/25 13:29) HPI Comments Details: A 34-year-old male presents for a follow-up visit r/t RAMSES post release from incarceration June 24. Denies use of opiates, alcohol, and other substances. Does acknowledge intermittent use of vaping for nicotine and THC. Received RAMSES treatment during incarceration, taking buprenorphine-naloxone 8-2 mg BID. Temporarily living with sister and looking forward to getting back to working and reconnected to [facility] for mental health services. [facility] Medical History History of kidney stones Contusion of testicle History of pancreatitis Pneumonia Chronic pancreatitis Alcohol abuse Hepatopulmonary syndrome E-cigarette or vaping product use associated lung injury (EVALI) CHF (congestive heart failure) Social History Household Members: Friend(s) Alcohol intake: never Patient Tobacco Use Status: Current everyday Tobacco user Tobacco use type: Cigarette Substance Use Type: Heroin Review of Systems Const All systems reviewed & are unremarkable except as noted in HPI and below Physical Exam Vital Signs: Last Vital Signs Pulse 74 06/27/25 13:28 BP 116/70 06/27/25 13:28 Pulse Ox 97 06/27/25 13:28 BMI result Body Mass Index 29.0 Const General: cooperative Assessment & Plan Assessment & Plan (1) Opioid use disorder, severe, dependence: Code(s): F11.20 - Opioid dependence, uncomplicated Category: Medical Plan The plan of care is to continue with buprenorphine-naloxone 8-2 mg BID. Engage in risk reduction activities to decrease use of vaping for nicotine and THC. Follow-up in 2 weeks or sooner if needed. Medications: New naloxone 4 mg/actuation (Narcan) spray 1 dose into ONE nostril; alternate nostrils w each dose until help arrives 1 spray intranasal Q2M 2 ea 0RF Changed From buprenorphine-naloxone 8-2 mg (Suboxone) 1 film buccal TID 10 ea 0RF To buprenorphine-naloxone 8-2 mg (Suboxone) 1 film sublingually twice per day 1 film sublingual BID 28 ea 0RF 14 days Patient Instructions: - Continue with buprenorphine-naloxone as prescribed. - Engage in risk reduction activities to decrease use of vaping for nicotine and THC. - Narcan prescribed. - Follow-up in 2 weeks or sooner if needed. - Call with questions, concerns, or to report side effects/new onset of symptoms to [facility]. - The patient verbalized understanding and agreed with plan of care. Coding Level of Care Code Est Pt Level 3 (09583) Diagnoses Opioid use disorder, severe, dependence F11.20
--- OUTSIDE RECORDS SUMMARY | 2025-06-27 16:52 | XMS_ITS | Encounter Summary ---
Author Organization [facility] Address [address] [place] [phone] Phone Care Team Providers Care Manufacturing Maintenance Mechanic Name Role Phone Pcp, Unknown Primary Care Provider Unavailabl e Encounter Details Date Type Department Care Team (Late st Contact Info) Description 04/01/2021 Procedure Pass [facility], Ct Scan - [address] [address] Social History Tobacco Use Types Packs/Day Years Used Date Smoking Tobacco: Never Assessed Alcohol Use Standard Drinks/Week Comments Yes 0 (1 standard drink = 0.6 oz pur e alcohol) Sex and Gender Information Value Date Recorded Sex Assigned at Male 04/09/2021 1:20 PM EDT Legal Sex Male 9:04 PM EDT Gender Identity Male 04/09/2021 1:20 PM EDT Sexual Orientation Not on file documented as of this encounter Functional Status * Calculated C-SSRS Risk Score (Lifetime/Recent) Answer Date of Assessment Author No Risk Indicated 04/01/2021 6:33 PM EDT Meng Gregory, KOLBY * [place] Suicide Severity Rating Scale (Screener/Recent Self-Report) Question Answer Date of Assessment Author 1. Wish to be (Past 1 Month) No 04/01/2021 6:33 PM EDT Meng Flores, KOLBY 2. Non-Specific Active Suicidal Thoughts (Past 1 Month) No 04/01/2021 6:33 PM EDT Meng Flores, KOLBY 6. Suicidal Behavior (Lifetime) No 04/01/2021 6:33 PM EDT Meng Flores, KOLBY documented as of this encounter Plan of Treatment Upcoming Encounters Date Type Department Care Team (Late st Contact Info) Description 2089 Hospital Encounter [facility] [address] [place] [address] Jim Khan FNP [address] [place] [address] [email or web address]. 2089 Hospital Encounter [facility] [address] [place] [address] documented as of this encounter Visit Diagnoses Not on filedocumented in this encounter Care Teams Manufacturing Maintenance Mechanic Relationship Specialty Start Date End Date Pcp, Unknown PCP - General 04/01/21 documented as of this encounter Additional Source Comments The information contained in this document represents components of the legal health record. It is not the complete legal health record.[facility]
--- OUTSIDE RECORDS SUMMARY | 2025-06-27 16:52 | XMS_ITS | Clinical Summary ---
Author Organization [facility] Address [address] [place] [phone] Phone Care Team Providers Care Fee Clerk Name Role Phone Pcp, Unknown Primary Care Provider Unavailabl e Allergies No known active allergies Medications No known medications Encounters Date Type Department Care Team Description 04/06/2025 8:41 AM EDT - 04/06/2025 11:59 PM EDT Hospital Encounter [facility] [address] [place] [address] Jim Khan FNP Discharge Disposition: Home or Self Care from Last 3 Months Immunizations Immunization Administration Dates Next Due Tdap 04/01/2021 Social History Tobacco Use Types Packs/Day Years Used Date Smoking Tobacco: Never Assessed Alcohol Use Standard Drinks/Week Comments Yes 0 (1 standard drink = 0.6 oz pur e alcohol) Education Answer Date Recorded Are you interested in more education? Not on ana e 12/27/2022 Are you concerned about learning? Not on file 12/27/2022 No 12/27/2022 No 12/27/2022 Digital Access Answer Date Recorded No 01/24/2023 No 01/24/2023 No 01/24/2023 Reliable internet access at home? Not on file 01/24/2023 Device with a working camera? Not on file Sex and Gender Information Value Date Recorded Sex Assigned at Male 04/09/2021 1:20 PM EDT Legal Sex Male 9:04 PM EDT Gender Identity Male 04/09/2021 1:20 PM EDT Sexual Orientation Not on file Last Filed Vital Signs Vital Sign Reading Time Taken Comments Blood Pressure 147/95 04/09/2021 1:18 PM EDT Pulse 105 04/09/2021 1:18 PM EDT Temperature 37 C (98.6 F) 04/09/2021 1:18 PM EDT Respiratory Rate 16 04/09/2021 1:18 PM EDT Oxygen Saturation 98% 04/09/2021 1:18 PM EDT Inhaled Oxygen Concentration - - Weight 63.5 kg (140 lb) 04/09/2021 1:18 PM EDT Height 165.1 cm (5' 5 ) 04/09/2021 1:18 PM EDT Body Mass Index 23.3 04/09/2021 1:18 PM EDT Plan of Treatment Upcoming Encounters Date Type Department Care Team (Late st Contact Info) Description 2089 Hospital Encounter [facility] Laboratory [address] [place] [address] Jim Khan FNP [address] [place] [address] [email or web address] Hospital Encounter [facility] [address] [place] [address] Health Maintenance Due Date Last Done Comments LIPID PANEL 1989 DEPRESSION SCREENING 2001 SMOKING Hx and SMOKELESS TOBACCO SCREENING 2002 HIV ONE-TIME SCREENING (18-6 5 YEARS) 12/20/2007 INFLUENZA VACCINE (#1) 2025 COVID-19 VACCINE ( - 2024-2 6 season) 2025 Adult Td,Tdap Booster 04/01/2031 04/01/2021 HEPATITIS C SCREENING Completed 04/06/2025 , 04/06/2025 HEPATITIS A VACCINES Aged Out No long er eligible based on patient's age to complete this topic HIB VACCINES Aged Out No longer eligi ble based on patient's age to complete this topic MENINGOCOCCAL VACCINES (ACWY) Aged Out No longer eligible based on patient's age to complete this topic MENINGOCOCCAL VACCINES (B) Aged Out N o longer eligible based on patient's age to complete this topic PNEUMOCOCCAL VACCINES (0-49 years) Aged Out No longer eligible b ased on patient's age to complete this topic Medical Devices Not on file Procedures Procedure Name Priority Date/Time Associated Diagnosis Comments CBC Routine 04/06/2025 9:50 AM EDT Health examination of prisoner LFTS (HEPATIC PANEL) Routine 04/06/2025 9:50 AM EDT Health examination of prisoner HEPATITIS B SURFACE ANTIBODY Routine 04/06/2025 9:50 AM EDT Health examination of prisoner HEPATITIS A ANTIBODY, TOTAL Routine 04/06/2025 9:50 AM EDT Health examination of prisoner HEPATITIS C VIRAL LOAD (PCR) Routine 04/06/2025 9:50 AM EDT Health examination of prisoner HEPATITIS B SURFACE ANTIGEN Routine 04/06/2025 9:50 AM EDT Health examination of prisoner HEPATITIS C ANTIBODY, QUALITATIVE Routine 04/06/2025 9:50 AM EDT Health examination of prisoner HEPATITIS B CORE ANTIBODY, TOTAL Routine 04/06/2025 9:50 AM EDT Health examination of prisoner from Last 3 Months Results * HEPATITIS A ANTIBODY, TOTAL (04/06/2025 9:50 AM EDT) HAV TOTAL AB NON-REACTI VE NON-REACTI VE [facility] Blood 04/06/2025 9:50 AM EDT 04/06/2025 10:55 AM EDT us Jim ANNA LAB BLOOD ORDERABL ES Final Result [facility] [address] [place] [address] * (ABNORMAL) LFTs (hepatic panel) (04/06/2025 9:50 AM EDT) ALKALINE PHOSPHATASE 96 39 - 117 U/L [facility] TOTAL BILIRUBIN <0.2 0.0 - 1.2 mg/dL [facility] DIRECT BILIRUBIN 0.1 0.0 - 0.2 mg/dL [facility] Bilirubin (Indirect) NOT CALCULATED 0 - 1.5 mg/dL [facility] AST 23 0 - 37 U/L [facility] ALT 21 0 - 40 U/L [facility] TOTAL PROTEIN 6.3(L) 6.5 - 8.0 g/dL [facility] ALBUMIN 4.3 3.9 - 4.8 g/dL [facility] GLOBULIN 2.0 1 - 4.8 g/dL [facility] A/G Ratio 2.15 1.00 - 4.80 RATIO [facility] Blood 04/06/2025 9:50 AM EDT 04/06/2025 10:55 AM EDT Jim [facility] LAB BLOOD ORDERABL ES Final Result Performing Organization Address City/[facility]/ZIP Co de Phone Number [address] [address] * Hepatitis C antibody, qualitative (04/06/2025 9:50 AM EDT) HCV NON-REACTIV E NON-REACTI VE [facility] Blood 04/06/2025 9:50 AM EDT 04/06/2025 10:55 AM EDT Jim Khan [facility] LAB BLOOD ORDERABL ES Final Result [address] [address] * Hepatitis B core antibody, total (04/06/2025 9:50 AM EDT) HEP B CORE AB, TOT NON-REACTI VE NON-REACTI VE [facility] Blood 04/06/2025 9:50 AM EDT 04/06/2025 10:55 AM EDT Jim Khan [facility] LAB BLOOD ORDERABL ES Final Result Performing Organization Address [facility]/ZIP Co de Phone Number [address] [address] * Hepatitis C viral load (PCR) (04/06/2025 9:50 AM EDT) Pathologist [facility] HCV RNA DETECT/QNT Undetected Undetected IU/mL [facility] LAB MED/PATH [facility] Comment: (NOTE) Result in log IU/mL is Undetected. ADDITIONAL INFORMATION The quantification range of this assay is 15 to 100,000,000 IU/mL (1.18 log to 8.00 log IU/mL). Testing was performed using the stacey HCV test ([employer] Blood (Blood) 04/06/2025 9:5 0 AM EDT 04/06/2025 10:56 AM EDT Jim ANNA NON CULTURE MICROB IOLOGY Final Result Performing Organization Address [facility] de Phone Number [facility] MED/PATH [place] [address] [place] [address] * Hepatitis B surface antibody (04/06/2025 9:50 AM EDT) HBV SURFACE ANTIBODY Positive [facility] Comment: Unvaccinated: Negative Vaccinated: Positive Blood 04/06/2025 9:50 AM EDT 04/06/2025 10:55 AM EDT Jim ANNA LAB BLOOD ORDERABL ES Final Result Performing Organization Address [facility] Co de Phone Number [address] [address] * Hepatitis B surface antigen (04/06/2025 9:50 AM EDT) Pathologist [facility] HBV SURFACE ANTIGEN NON-REACTI VE NON-REACTI VE [facility] Blood 04/06/2025 9:50 AM EDT 04/06/2025 10:55 AM EDT Jim [facility] LAB BLOOD ORDERABL ES Final Result Performing Organization Address City/[facility]/ZIP Co de Phone Number [address] [address] * (ABNORMAL) CBC (04/06/2025 9:50 AM EDT) WBC 8.63 4.00 - 11.00 K/uL [facility] RBC 4.57 4.50 - 5.90 M/uL [facility] HGB 13.8 13.5 - 17.5 g/dL [facility] HCT 40.6(L) 41.0 - 53.0 % [facility] PLT 204 150 - 450 K/uL [facility] MCV 88.8 80.0 - 100.0 fL [facility] MCH 30.2 27.0 - 31.0 pg [facility] MCHC 34.0 32.0 - 36.0 g/dL [facility] RDW 13.1 11.5 - 14.5 % [facility] MPV 11.2 8.4 - 12.0 fL [facility] NRBC 0.00 0.00 /100 WBCs [facility] ABSOLUTE NRBC 0.00 0.00 K/uL [facility] Blood 04/06/2025 9:50 AM EDT 04/06/2025 10:55 AM EDT Jim [facility] LAB BLOOD ORDERABL ES Final Result Performing Organization Address City/[facility]/ZIP Co de Phone Number [address] [address] from Last [address] [place] [address] [address] [employer] Member Subscriber Plan / Payer (Ef fective 2024-Present) Name:Viral Valencia Relation to Subscriber:Self Name:Annie Viral Payer ID:Not on file Type:Medicaid Address: [address] [place] [address] [facility] [address] Member Subscriber Plan / Payer (Ef fective 2024-Present) Name:Viral Valencia Relation to Subscriber:Self Name:Viral Valencia Payer ID:Not on file Type:Medicaid Address: [address] A[employer] Member Subscriber Plan / Payer (Ef fective 2024-Present) Name:Viral Valencia Relation to Subscriber:Self Name:Viral Valencia Payer ID:Not on file Type:Medicaid Address: [address] A[employer] Member Subscriber Plan / Payer (Ef fective 2024-Present) Name:Viral Valencia Relation to Subscriber:Self Name:Viral Valencia Payer ID:Not on file Type:Medicaid Address: [address] [place] [address] A[employer] Member Subscriber Plan / Payer (Ef fective 2024-Present) Name:Viral Valencia Relation to Subscriber:Self Name:Viral Valencia Payer ID:Not on file Type:Medicaid Address: [address] Care Teams Fee Clerk Relationship Specialty Start Date End Date Pcp, Unknown PCP - General 04/01/21 Additional Source Comments The information contained in this document represents components of the legal health record. It is not the complete legal health record.[facility]
--- OUTSIDE RECORDS SUMMARY | 2025-06-27 16:52 | XMS_ITS | Encounter Summary ---
Author Organization [facility] Address [address] [place] [address] Phone Care Team Providers Care Marble And Granite Polisher Name Role Phone Pcp, Unknown Primary Care Provider Unavailabl e Encounter Details Date Type Department Care Team (Late st Contact Info) Description 04/01/2021 Procedure Pass [facility], Ct Scan - [address] [address] Social History Tobacco Use Types Packs/Day Years [...] 6:33 PM EDT Meng Gregory, KOLBY * [place] Suicide Severity Rating Scale (Screener/Recent Self-Report) Question [...] Description 2089 Hospital Encounter [facility] [address] [place] [address] Jim Khan FNP [address] [place] [address] [email or web address] Hospital Encounter [facility] [address] [place] [address] documented as of this encounter Visit Diagnoses Not on filedocumented in this encounter Care Teams Marble And Granite Polisher Relationship Specialty Start Date End Date Pcp, Unknown PCP - General 04/01/21 documented as of this encounter Additional Source Comments The information contained in this document represents components of the legal health record. It is not the complete legal health record.[facility]
--- OUTSIDE RECORDS SUMMARY | 2025-06-27 16:52 | XMS_ITS | Clinical Summary ---
Author Organization [facility] Address [address] [facility] 7 [place] [address] Care Team Providers Care Supervisor Purification Name Role Phone Unavailable Primary Care Provider Unavailabl e Immunizations Immunization Administration Dates Next Due Pfizer Covid-19 Vaccine 12+ 09/30/2022, Social History Tobacco Use Types Packs/Day Years Used Date Smoking Tobacco: Never Assessed Sex and Gender Information Value Date Recorded Sex Assigned at Male 09/30/2022 1:38 PM EST Legal Sex Male 10:55 AM EST Gender Identity Male 09/30/2022 1:38 PM EST Sexual Orientation Straight 09/30/2022 1: 38 PM EST Plan of Treatment Health Maintenance Due Date Last Done Comments Depression Screening 1989 HIV Screening 1989 Lipid Panel 1989 SDOH Screening 1989 Disability Screening 1989 Alcohol/Substance Use Screening 2001 Tobacco Screening 2001 Family Planning (PISQ) 2004 HPV Vaccines (1 - Male 3-dos e series) 2004 Hepatitis C Screening 12/20/2007 Hepatitis B Vaccines (1 of 3 - 19+ 3-dose series) 2008 COVID-19 Vaccine (3 - 2024-2 6 season) 2025 09/30/2022, 09/10/2022 Influenza Vaccine (#1) 2025 DTaP/Tdap/Td Vaccines (2 - T d or Tdap) 04/01/2031 04/01/2021 Zoster Vaccines (1 of 2) 12/20/2039 RSV Patients and Patients Aged 60 years or older (1 - 1-dose 75+ series) 2064 HIB Vaccines Aged Out No longer eligi ble based on patient's age to complete this topic Hepatitis A Vaccines Aged Out No long er eligible based on patient's age to complete this topic IPV Vaccines Aged Out No longer eligi ble based on patient's age to complete this topic Meningococcal B Vaccine Aged Out No l onger eligible based on patient's age to complete this topic Meningococcal Vaccine Aged Out No alisha jaziel eligible based on patient's age to complete this topic Pneumococcal Vaccine: Pediatrics (0 to 5 Years) and At-Risk Patients (6 to 49) Years Aged Out No longer eligible b ased on patient's age to complete this topic RSV under 20 months Aged Out No longe r eligible based on patient's age to complete this topic Rotavirus Vaccines Aged Out No longer eligible based on patient's age to complete this topic Insurance [place] [address] STANDARD
== END 2025-06-27 13:39 | disposition home or self-care (01) ==
LOC: HO.HCC 13:18
PROVIDERS: Visit Provider Clinical Nurse Specialist Psychiatric/Mental Health
DX: F11.20 Opioid dependence, uncomplicated (principal)
CPT/HCPCS: 99213

== ENCOUNTER → 2025-06-27 13:18 | Outpatient (BNVA) | payer OTHER, SELFPAY | PROVIDERS: Visit Provider Clinical Nurse Specialist Psychiatric/Mental Health | DX: F11.20 Opioid dependence, uncomplicated (principal) | CPT/HCPCS: 99212 ==

== ENCOUNTER 2025-07-11 13:13 | Outpatient (AMB) | payer OTHER, SELFPAY ==
[2025-07-11 13:21] VITALS: BP 120/70; PULSE 70; O2SAT 99
--- NOTE | 2025-07-11 13:21 | MHC.OFFVIS ---
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 Denies use of opiates, alcohol, and other substances. Does continue to vape for nicotine and smokes cannabis on intermittent basis. Education provided on risk reduction activities to minimize vaping and cannabis use. Reports connecting with peer disaster recovery consultant, and [facility] support services to navigate services in the community. [facility] Medical History History of kidney stones Contusion of testicle History of pancreatitis Pneumonia Chronic pancreatitis Alcohol abuse Hepatopulmonary syndrome E-cigarette or vaping product use associated lung injury (EVALI) CHF (congestive heart failure) Social History Household Members: Friend(s) Alcohol intake: never Patient Tobacco Use Status: Current everyday Tobacco user Tobacco use type: Cigarette Substance Use Type: Heroin Review of Systems Const All systems reviewed & are unremarkable except as noted in HPI and below Physical Exam Vital Signs: Last Vital Signs Pulse 70 07/11/25 13:21 BP 120/70 07/11/25 13:21 Pulse Ox 99 07/11/25 13:21 Const General: cooperative Assessment & Plan Assessment & Plan (1) Opioid use disorder, severe, dependence: Code(s): F11.20 - Opioid dependence, uncomplicated Category: Medical Plan The plan of care is to continue with buprenorphine-naloxone 8-2 mg BID and engage in risk reduction activities to minimize vaping, and cannabis use. Follow-up in 1 month or sooner if needed. Medications: Changed From buprenorphine-naloxone 8-2 mg (Suboxone) 1 film sublingually twice per day 1 film sublingual BID 14 days 28 ea 0RF To buprenorphine-naloxone 8-2 mg (Suboxone) 1 film sublingually twice per day 1 film sublingual BID 60 ea 0RF 30 days Patient Instructions: - Continue with buprenorphine-naloxone as prescribed. - Engage in risk reduction activities to minimize vaping, and cannabis use. - Follow-up in 1 month or sooner if needed. - Call with questions, concerns, or to report side effects/new onset of symptoms to [facility]. - The patient verbalized understanding and agreed with plan of care. Coding Level of Care Code Est Pt Level 3 (39068) Diagnoses Opioid use disorder, severe, dependence F11.20
--- OUTSIDE RECORDS SUMMARY | 2025-07-11 15:21 | XMS_ITS | Encounter Summary ---
Author Organization [facility] Address [address] [place] [phone] Phone Care Team Providers Care Respiratory Therapy Manager Name Role Phone Pcp, Unknown Primary Care Provider Unavailabl e Encounter Details Date Type Department Care Team (Late st Contact Info) Description 04/01/2021 Procedure Pass [facility], Ct Scan - [address] [address] Social History Tobacco Use Types Packs/Day Years [...] 6:33 PM EDT Meng Gregory, KOLBY * [place] Suicide Severity Rating Scale (Screener/Recent Self-Report) Question [...] Description 2089 Hospital Encounter [facility] [address] [place] [address] Jim Khan FNP [address] [place] [address] [email or web address]. 2089 Hospital Encounter [facility] [address] [place] [address] documented as of this encounter Visit Diagnoses Not on filedocumented in this encounter Care Teams Respiratory Therapy Manager Relationship Specialty Start Date End Date Pcp, Unknown PCP - General 04/01/21 documented as of this encounter Additional Source Comments The information contained in this document represents components of the legal health record. It is not the complete legal health record.[facility]
--- OUTSIDE RECORDS SUMMARY | 2025-07-11 15:21 | XMS_ITS | Encounter Summary ---
Author Organization [facility] Address [address] [place] [address] Phone Care Team Providers Care Certified Home Health Aide Name Role Phone Pcp, Unknown Primary Care Provider Unavailabl e Encounter Details Date Type Department Care Team (Late st Contact Info) Description 04/01/2021 Procedure Pass [facility], Ct Scan - [address] [address] Social History Tobacco Use Types Packs/Day Years [...] 6:33 PM EDT Meng Gregory, KOLBY * [place] Suicide Severity Rating Scale (Screener/Recent Self-Report) Question [...] Description 2089 Hospital Encounter [facility] [address] [place] [address] Jim Khan FNP [address] [place] [address] [email or web address] 2089 Hospital Encounter [facility] [address] [place] [address] documented as of this encounter Visit Diagnoses Not on filedocumented in this encounter Care Teams Certified Home Health Aide Relationship Specialty Start Date End Date Pcp, Unknown PCP - General 04/01/21 documented as of this encounter Additional Source Comments The information contained in this document represents components of the legal health record. It is not the complete legal health record.[facility]
--- OUTSIDE RECORDS SUMMARY | 2025-07-11 15:21 | XMS_ITS | Clinical Summary ---
Author Organization [facility] Address [address] [facility] 7 [place] [address] Care Team Providers Care Nitrogen Operator Name Role Phone Unavailable Primary Care Provider [...] patient's age to complete this topic Insurance [place] [address] STANDARD
--- OUTSIDE RECORDS SUMMARY | 2025-07-11 15:21 | XMS_ITS | Clinical Summary ---
Author Organization [facility] Address [address] [place] [phone] Phone Care Team Providers Care Cargo Service Supervisor Name Role Phone Pcp, Unknown Primary Care Provider Unavailabl e Allergies No known active allergies Medications No known medications Immunizations Immunization Administration Dates Next Due Tdap [...] Description 2089 Hospital Encounter [facility] [address] [place] [address] Jim Khan, PRICE ECONOMIST [address] [place] [address] [email or web address] Hospital Encounter [facility] [address] [place] [address] Health Maintenance Due Date Last Done Comments LIPID PANEL 1989 DEPRESSION SCREENING 2001 SMOKING Hx and SMOKELESS TOBACCO SCREENING 2002 HIV ONE-TIME SCREENING (18-65 YEARS) 12/20/2007 INFLUENZA VACCINE (#1) 2025 COVID-19 VACCINE (2024- season) 2025 Adult Td,Tdap Booster 04/01/2031 04/01/2021 HEPATITIS C SCREENING Completed 04/06/2025 , 04/06/2025, 04/06/2025, Additional history exists HEPATITIS A VACCINES Aged Out No long [...] (0-49 years) Aged Out No longer eligible based on patient's age to complete this topic Medical Devices Not on file Procedures Procedure Name Priority Date/Time Associated Diagnosis Comments HEPATITIS C ANTIBODY, QUALITATIVE Routine 04/06/2025 9:50 AM EDT Health examination of prisoner from Last 3 Months or Most Recently Relevant to Health Maintenance Results * Hepatitis C antibody, qualitative (04/06/2025 9:50 AM EDT) HCV NON-REACTIV E NON-REACTI VE [facility] Blood 04/06/2025 9:5 0 AM EDT 04/06/2025 10:55 AM EDT Jim Khan PRICE ECONOMIST LAB BLOOD BKR MAC CHAKRABORTY Final Result [facility] [address] [place] [address] from Last 3 Months or Most Recently Relevant to Health Maintenance Insurance [employer] Member Subscriber Plan / Payer (Ef fective 2024-Present) Name:Annie Viral Relation to Subscriber:Self Name:Viral Valencia Payer ID:Not on file Type:Medicaid Address: [address] Member Subscriber Plan / Payer ( fective 2025-Present) Name[place] Member ID:[id number] Relation to Subscriber:Self Name:Annie Viral Subscriber ID:[id number] Payer ID:Not on file Group ID:Not on file Type:Indemnity Address: [place] [id number] [place] [address] ACO Member Subscriber Plan / Payer ( fective 2024-Present) Name:Viral Valencia Relation to Subscriber:Self Name:Annie Viral Payer ID:Not on file Type:Medicaid Address: [address] Member Subscriber Plan / Payer ( fective 2025-Present) Name:Viral Valencia Member ID:[id number] Relation to Subscriber:Self Name:Viral Valencia Subscriber ID:[id number] Payer ID:Not on file Group ID:Not on file Type:Indemnity Address: [place] [id number] [facility] ACO Member Subscriber Plan / Payer (Ef fective 2024-Present) Name:Viral Valencia Relation to Subscriber:Self Name:AnnieViral Payer ID:Not on file Type:Medicaid Address: [address] [facility] A[employer] Member Subscriber Plan / Payer (Ef fective 2024-Present) Name:Viral Valencia Relation to Subscriber:Self Name:Viral Valencia Payer ID:Not on file Type:Medicaid Address: [address] [facility] [employer] [place] [address] Care Teams Cargo Service Supervisor Relationship Specialty Start Date End Date Pcp, Unknown PCP - General 04/01/21 Additional Source Comments The information contained in this document represents components of the legal health record. It is not the complete legal health record.[facility]
== END 2025-07-11 13:29 | disposition home or self-care (01) ==
LOC: HO.HCC 13:14
PROVIDERS: Visit Provider Clinical Nurse Specialist Psychiatric/Mental Health
DX: F11.20 Opioid dependence, uncomplicated (principal)
CPT/HCPCS: 99213

== ENCOUNTER → 2025-07-11 13:13 | Outpatient (BNVA) | payer OTHER, SELFPAY | PROVIDERS: Visit Provider Clinical Nurse Specialist Psychiatric/Mental Health | DX: F11.20 Opioid dependence, uncomplicated (principal) | CPT/HCPCS: 99212 ==